=== PATIENT | female | born 1965 ===

== ENCOUNTER 2018-01-21 19:48 | Observation (INO) | payer SELFPAY ==
--- NOTE | 2018-01-21 20:14 | ED PDOC ---
HPI: General Adult Time Seen by Provider: 01/21/18 20:12 Chief Complaint (Nursing): Shortness Of Breath Chief Complaint (Provider): SOB History Per: Patient Additional Complaint(s): 52-year-old female presents to emergency department with chest pain, palpitations and shortness of breath that started about one hour prior to arrival. Patient states that symptoms have resolved as of now but earlier symptoms were intense. Patient has had 3 episodes similar to this in the past few weeks. She has history of cardiac ablation procedure for SVT last year and takes lisinopril daily for hypertension. Patient denies any fever or chills, no dyspnea on exertion. PMD: [facility] Past Medical History Reviewed: Historical Data, Nursing Documentation, Vital Signs Vital Signs: Last Vital Signs Temp 98.2 F 01/21/18 20:05 Pulse 70 01/21/18 21:02 Resp 18 01/21/18 21:02 BP 121/82 01/21/18 21:02 Pulse Ox 96 01/21/18 21:37 - Medical History PMH: Cardia Arrhythmia (SVT) - Surgical History Other surgeries: cardiac ablation - Family History Family History: States: No Known Family Hx - Living Arrangements Living Arrangements: With Family - Social History Current smoker - smoking cessation education provided: No Alcohol: Occasional Drugs: Denies - Home Medications Home Medications: Ambulatory Orders Medication Instructions Recorded Aspirin [Aspirin Chewable] 81 mg PO DAILY 07/06/17 - Allergies Allergies/Adverse Reactions: Allergies Allergy/AdvReac Type Severity Reaction Status Date / Time No Known Allergies Allergy Verified 01/21/18 20:05 Review of Systems ROS Statement: Except As Marked, All Systems Reviewed And Found Negative Constitutional: Negative for: Fever Cardiovascular: Positive for: Chest Pain. Negative for: Edema, Light Headedness Respiratory: Positive for: Shortness of Breath. Negative for: Cough, Hemoptysis , SOB with Exertion, Pleuritic Pain, Sputum, Wheezing Gastrointestinal: Negative for: Nausea, Vomiting Neurological: Negative for: Headache, Dizziness Physical Exam - Reviewed Nursing Documentation Reviewed: Yes Vital Signs Reviewed: Yes - Physical Exam Appears: Positive for: Well, Non-toxic, No Acute Distress Skin: Negative for: Rash Eye Exam: Positive for: Normal appearance Cardiovascular/Chest: Positive for: Regular Rate, Rhythm Respiratory: Positive for: Normal Breath Sounds Gastrointestinal/Abdominal: Positive for: Soft. Negative for: Tenderness Extremity: Positive for: Normal ROM Neurologic/Psych: Positive for: Alert, Oriented - Laboratory Results Result Diagrams: 01/21/18 21:05 01/21/18 21:05 - ECG Interpretation Of ECG: NSR 99 bpm, no acute finding, reviewed by PA and ED attending O2 Sat by Pulse Oximetry: 96 Pulse Ox Interpretation: Normal - Other Rad CXR X-Ray: Interpreted by Me, Viewed By Me X-Ray Interpretation: no acute finding Medical Decision Making Medical Decision Makin52 year old with chest pain, palpitations and SOB, now resolved. Plan: EKG CXR CBC CMP Trop DDimer IVF PO ASA and tylenol PMD is [facility], case was d/w family practice resident, Dr. Villa who will admit patient to Obs-tele. Patient is aware of and agrees with admission. Disposition - Clinical Impression Clinical Impression: Chest pain, Palpitations, Shortness of breath - Patient ED Disposition Is Patient to be Admitted: Yes - Disposition Disposition Time: 22:15 Condition: STABLE Forms: [employer] ([place]) - Pt Status Changed To: Hospital Disposition Of: Observation - POA Present On Arrival: None Results - Lab Results Lab Results: 01/21/18 01/21/18 01/21/18 21:05 21:05 21:05 WBC 8.0 RBC 4.33 Hgb 13.3 Hct 39.3 MCV 90.8 MCH 30.8 MCHC 33.9 RDW 13.6 Plt Count 247 MPV 8.1 Neut % (Auto) 67.5 Lymph % (Auto) 25.9 [place] % (Auto) 4.5 Eos % (Auto) 1.4 Baso % (Auto) 0.7 Neut # (Auto) 5.4 Lymph # (Auto) 2.1 [place] # (Auto) 0.4 Eos # (Auto) 0.1 Baso # (Auto) 0.1 D-Dimer, Quantitative 85 Sodium 145 Potassium 3.9 Chloride 106 Carbon Dioxide 26 Anion Gap 17 BUN 18 H Creatinine 0.7 Est GFR ( Amer) > 60 Est GFR (Non-Af Amer) > 60 Random Glucose 108 H Calcium 9.3 Phosphorus 3.3 Magnesium 2.1 Total Bilirubin 0.4 AST 31 ALT 24 Alkaline Phosphatase 91 Troponin I < 0.0120 Total Protein 7.9 Albumin 4.1 Globulin 3.8 Albumin/Globulin Ratio 1.1 TSH 3rd Generation 0.72
[2018-01-21] MEDS ORDERED: Sodium Chloride 0.9% 1,000 ML IV STA (20:31)
[2018-01-21 21:12] LABS: BASO # 0.1 K/uL (0.0-0.2); BASO % 0.7 % (0.0-2.0); EOS # 0.1 K/uL (0.0-0.7); EOS % 1.4 % (0.0-4.0); HEMOGLOBIN 13.3 g/dL (12.0-16.0); LYMPH # 2.1 K/uL (1.0-4.3); LYMPH % 25.9 % (20.0-40.0); MEAN CELL VOLUME 90.8 fl (81.0-99.0); MEAN CORPUSCULAR HEMOGLOBIN 30.8 pg (27.0-31.0); MEAN CORPUSCULAR HGB CONC 33.9 g/dL (33.0-37.0); MEAN PLATELET VOLUME 8.1 fl (7.2-11.7); MONO # 0.4 K/uL (0.0-0.8); MONO % 4.5 % (0.0-10.0); NEUT # 5.4 K/uL (1.8-7.0); NEUT % 67.5 % (50.0-75.0); RBC 4.33 Mil/uL (3.80-5.20); RED CELL DISTRIBUTION WIDTH 13.6 % (11.5-14.5)
[2018-01-21 21:38] LABS: ALB/GLOB RATIO 1.1 (1.0-2.1); ALBUMIN 4.1 g/dL (3.5-5.0); ALT/SGPT 24 U/L (9-52); AST/SGOT 31 U/L (14-36); BLOOD UREA NITROGEN 18 mg/dl (7-17); CALCIUM 9.3 mg/dL (8.4-10.2); GFR AFRICAN-AMERICAN > 60; GFR NON-AFRICAN AMERICAN > 60; MAGNESIUM 2.1 MG/DL (1.6-2.3)
--- NOTE | 2018-01-21 22:48 | CP.PCM.HP ---
History of Present Illness - History of Present Illness History of Present Illness: "I have chest discomfort and difficulty breathing today" [employer]#: [id number] 52 y/o female with PMHx remarkable for HTN, PSVT (s/p ablation 11/2016) presents for evaluation of difficulty breathing and midsternal chest pain. Pt reports these symptoms started approx 2 weeks ago and she has been going to various doctors and ERs for evaluation. She has been discharged each time w/o any further workup or diagnosis. Today, at approx 13:00, she had another episode of SOB, midsternal discomfort, associated with nausea and dizziness. The episode lasted between 30min-1hr and resolved spontaneously. During the first episode, she denied any fever, cough, Palpitations, left/arm jaw pain, diaphoresis, back pain. She did not take any medications. Later in the evening, she another episode, exactly the same as the first, which prompted to to come in for evaluation. As per pt, she was worked up at [place] recently and was discharged with a diagnosis of Acute Bronchitis. She complained to PMD on 01/04 of these episodes and was told it was residual symptoms left over from her recent illness. She denies any fever/chills, visual changes, headaches, palpitations, pre-syncopal symptoms, COPE/exertional CP/palpitations, V/D/C, numbness/tingling. PMD: [facility] (most recent visit 01/04/2018) PMHx: PSVT, HTN Meds: Lisinopril 5mg QD, Aspirin 81mg QD (as of 01/04) PSurgHx: hysterectomy 8 years ago, [facility] Ablation 11/2016 at [facility] ALL: NKDA FamilyHx: HTN, father colon CA SocialHx: Denies ETOH/Tobacco/drug abuse LMP: >8 years ago OBHx: , NSVDx2 Next of Kin: Daughter, Veronica Varma [phone] Code Status: Full Code ED Course: Vitals on Presentation: T: 98.2 F, BP 155/110 then 121/82, HR: 96 then 70, RR: 16, POX: 96% RA Labs CBC: wnl CMP: wnl Troponin: <0.0120 @ 21:05 D-Dimer: wnl TSH: wnl Imaging: EKG: NSR, 98 bpm, normal axis, QTc: 479 (prolonged), MI 144, no ST elevations/ depressions/Q-waves. Normal EKG as per my interpretation. CXR: normal CXR as per my interpretation Meds: Aspirin 325mg PO once Tylenol 950mg PO once 1 L NS Present on Admission - Present on Admission Any Indicators Present on Admission: No History of DVT/PE: No History of Uncontrolled Diabetes: No Urinary Catheter: No Decubitus Ulcer Present: No Review of Systems - Constitutional Constitutional: absent: As Per HPI, Anorexia, Chills, Daytime Sleepiness, Excessive Sweating, Fatigue, Fever, Frequent Falls, Headache, Increased Appetite , Lethargy, Malaise, Night Sweats, Snoring, Sleep Apnea, Weight Gain, Weight Loss, Weakness, Other - EENT Eyes: absent: As Per HPI, Blind Spots, Blurred Vision, Change in Vision, Decreased Night Vision, Diplopia, Discharge, Dry Eye, Exophthalmos, Floaters, Irritation, Itchy Eyes, Loss of Peripheral Vision, Pain, Photophobia, Requires Corrective Lenses, Sees Flashes, Spots in Vision, Tunnel Vision, Other Visual Disturbances, Loss of Vision, Other Ears: absent: As Per HPI, Decreased Hearing, Ear Discharge, Ear Pain, Tinnitus, Abnormal Hearing, Disequilibrium, Dizziness, Other Nose/Mouth/Throat: absent: As Per HPI, Epistaxis, Nasal Congestion, Nasal Discharge, Nasal Obstruction, Nasal Trauma, Nose Pain, Post Nasal Drip, Sinus Pain, Sinus Pressure, Bleeding Gums, Change in Voice, Dental Pain, Dry Mouth, Dysphagia, Halitosis, Hoarsness, Lip Swelling, Mouth Lesions, Mouth Pain, Odynophagia, Sore Throat, Throat Swelling, Tongue Swelling, Facial Pain, Neck Pain, Neck Mass, Other - Breasts Breasts: absent: As Per HPI, Change in Shape, Mass, Pain, Nipple Discharge, Nipple Inversion, Skin Changes, Swelling, Other - Cardiovascular Cardiovascular: Chest Pain. absent: As Per HPI, Acrocyanosis, Chest Pain at Rest, Chest Pain with Activity, Claudication, Diaphoresis, Dyspnea, Dyspnea on Exertion, Edema, Irregular Heart Rhythm, Pain Radiating to Arm/Neck/Jaw, Leg Edema, Leg Ulcers, Lightheadedness, Orthopnea, Palpitations, Paroxysmal Nocturnal Dyspnea, Pedal Edema, Radiating Pain, Rapid Heart Rate, Slow Heart Rate, Syncope, Other - Respiratory Respiratory: Dyspnea. absent: As Per HPI, Cough, Hemoptysis, Dyspnea on Exertion, Wheezing, Snoring, Stridor, Pain on Inspiration, Chest Congestion, Excessive Mucous Production, Change in Mucous Color, Pain with Coughing, Other - Gastrointestinal Gastrointestinal: Nausea. absent: As Per HPI, Abdominal Pain, Belching, Bloating, Change in Bowel Habits, Change in Stool Character, Coffee Ground Emesis, Constipation, Cramping, Diarrhea, Dyspepsia, Dysphagia, Early Satiety, Excessive Flatus, Fecal Incontinence, Heartburn, Hematemesis, Hematochezia, Loose Stools, Melena, Odynophagia, Temesmus, Vomiting, Other - Genitourinary Genitourinary: absent: As Per HPI, Change in Urinary Stream, Difficulty Urinating, Dysuria, Flank Pain, Hematuria, Pyuria, Nocturia, Urinary Incontinence, Urinary Frequency, Urinary Hesitance, Urinary Urgency, Voiding Freq/Small Amts, Freq UTI, Hx Renal/Bladder Calculi, Hx /Renal Surgery, Bladder Distension, Other - Musculoskeletal Musculoskeletal: As Per HPI. absent: Abnormal Gait, Arthralgias, Atrophy, Back Pain, Deformity, Joint Swelling, Limited Range of Motion, Loss of Height, Muscle Cramps, Muscle Weakness, Myalgias, Neck Pain, Numbness, Radiating Pain into Limb, Stiffness, Tingling, Other Additional comments: midsternal chest pain - Integumentary Integumentary: absent: As Per HPI, Acne, Alopecia, Bleeding Lesions, Change in Hair, Change in Nails, Change in Pigmentation, Changing Lesions, Dry Skin, Erythema, Furuncle, Hirsutism, Lesions, New Lesions, Non-Healing Lesions, Photosensitivity, Pruritus, Rash, Skin Pain, Skin Ulcer, Sores, Striae, Swelling , Unusual Bruising, Wounds, Jaundice, Other Past Patient History - Past Medical History & Family History Past Medical History?: Yes - Past Social History Smoking Status: Never Smoked Alcohol: Occasional Drugs: Denies Home Situation {Lives}: With Family - CARDIAC Hx Cardia Arrhythmia: Yes (SVT) - PULMONARY Hx Respiratory Disorders: No - NEUROLOGICAL Hx Neurological Disorder: No - HEENT Hx HEENT Problems: No - RENAL Hx Chronic Kidney Disease: No - ENDOCRINE/METABOLIC Hx Endocrine Disorders: No - HEMATOLOGICAL/ONCOLOGICAL Hx Blood Disorders: No - INTEGUMENTARY Hx Dermatological Problems: No - MUSCULOSKELETAL/RHEUMATOLOGICAL Hx Musculoskeletal Disorders: No - GASTROINTESTINAL Hx Gastrointestinal Disorders: No - GENITOURINARY/GYNECOLOGICAL Hx Genitourinary Disorders: No - PSYCHIATRIC Hx Psychophysiologic Disorder: No Hx Emotional Abuse: No Hx Physical Abuse: No Hx Substance Use: No - SURGICAL HISTORY Hx Surgeries: Yes Hx Hysterectomy: Yes Other/Comment: CARDIAC ABLATION - ANESTHESIA Hx Anesthesia: Yes Hx Anesthesia Reactions: No Hx Malignant Hyperthermia: No Meds Allergies/Adverse Reactions: Allergies Allergy/AdvReac Type Severity Reaction Status Date / Time No Known Allergies Allergy Verified 01/21/18 20:05 Physical Exam - Constitutional Appears: Non-toxic, No Acute Distress - Head Exam Head Exam: ATRAUMATIC, NORMAL INSPECTION, NORMOCEPHALIC - Eye Exam Eye Exam: EOMI, Normal appearance, PERRL Pupil Exam: NORMAL ACCOMODATION - ENT Exam ENT Exam: Mucous Membranes Moist, Normal Exam - Neck Exam Neck exam: Positive for: Full Rom, Normal Inspection. Negative for: Lymphadenopathy, Tenderness, Thyromegaly - Respiratory Exam Respiratory Exam: Chest Wall Tenderness (reproducible chest tenderness to midsternal area, apporx 4th left intercostal space. no rash or trauma. ), Clear to Auscultation Bilateral, NORMAL BREATHING PATTERN. absent: Rales, Rhonchi, Wheezes, Respiratory Distress - Cardiovascular Exam Cardiovascular Exam: REGULAR RHYTHM, RRR, +S1, +S2. absent: Bradycardia, Tachycardia, Diastolic murmur, Gallop, Irregular Rhythm, JVD, Rubs, Systolic Murmur - GI/Abdominal Exam GI & Abdominal Exam: Normal Bowel Sounds, Soft. absent: Tenderness - Extremities Exam Extremities exam: Positive for: full ROM, normal capillary refill, normal inspection, pedal pulses present. Negative for: calf tenderness, pedal edema, tenderness - Back Exam Back exam: NORMAL INSPECTION. absent: CVA tenderness (L), CVA tenderness (R) - Neurological Exam Neurological exam: Alert, CN II-XII Intact, Normal Gait, Oriented x3, Reflexes Normal - Psychiatric Exam Psychiatric exam: Normal Affect, Normal Mood - Skin Skin Exam: Dry, Intact, Normal Color, Warm Results - Vital Signs Recent Vital Signs: Last Vital Signs Temp 98.2 F 01/21/18 20:05 Pulse 70 01/21/18 21:02 Resp 18 03/02/18 21:02 BP 121/82 01/21/18 21:02 Pulse Ox 96 01/21/18 22:16 - Labs Result Diagrams: 01/21/18 21:05 01/21/18 21:05 Labs: Laboratory Results - last 24 hr 01/21/18 01/21/18 01/21/18 21:05 21:05 21:05 WBC 8.0 RBC 4.33 Hgb 13.3 Hct 39.3 MCV 90.8 MCH 30.8 MCHC 33.9 RDW 13.6 Plt Count 247 MPV 8.1 Neut % (Auto) 67.5 Lymph % (Auto) 25.9 [place] % (Auto) 4.5 Eos % (Auto) 1.4 Baso % (Auto) 0.7 Neut # (Auto) 5.4 Lymph # (Auto) 2.1 [place] # (Auto) 0.4 Eos # (Auto) 0.1 Baso # (Auto) 0.1 D-Dimer, Quantitative 85 Sodium 145 Potassium 3.9 Chloride 106 Carbon Dioxide 26 Anion Gap 17 BUN 18 H Creatinine 0.7 Est GFR ( Amer) > 60 Est GFR (Non-Af Amer) > 60 Random Glucose 108 H Calcium 9.3 Phosphorus 3.3 Magnesium 2.1 Total Bilirubin 0.4 AST 31 ALT 24 Alkaline Phosphatase 91 Troponin I < 0.0120 Total Protein 7.9 Albumin 4.1 Globulin 3.8 Albumin/Globulin Ratio 1.1 TSH 3rd Generation 0.72 Assessment & Plan - Assessment and Plan (Free Text) Assessment: 52 y/o female, with a PMHx remarkable for HTN, PSVT (s/p ablation 11/2016) admitted for atypical chest pain to rule out ACS. Plan: 1) Atypical Chest Pain in Hypertensive Pt: -rule out ACS -admitted to tele/obs -tele monitoring -1st EKG unremarkable for cardiac etiology -Aspirin 325mg PO once given -1 L NS given -950mg Tylenol PO given -Labs wnl -Troponin <0.0120, will trend Q6H for 3 total values -repeat EKG in AM -pain control PRN as ordered -heart healthy diet 2) Hypertension: -stable/chronic -c/w Lisinopril 5mg QD 3) History of PSVT s/p ablation: -stable -EKG reviewed, no signs of SVT -placed on quality assurance monitor 4) Prophylaxis: -SCDs/ambulation -Lovenox 40mg SC QD 5) Code Status: -Full Code
[2018-01-22] MEDS ORDERED: Pneumococcal 23-Valent Vaccine IM ONE (06:00)
[2018-01-22 08:13] VITALS: BP 114/76; PULSE 56; RESP 20; TEMP 97.8; O2SAT 99
[2018-01-22] MEDS ORDERED: Enoxaparin 40 mg Syringe SC SCH (09:00)
[2018-01-22] MEDS ORDERED: Influenza Vaccine 18yr & older 0.5 ML/45 MCG SYR IM ONE (09:00)
--- NOTE | 2018-01-22 11:13 | CP.PCM.DIS ---
Provider - Provider Date of Admission: 01/21/18 22:02 Attending physician: Lynn Martinez MD Time Spent in preparation of Discharge (in minutes): 45 Diagnosis - Discharge Diagnosis (1) Chest pain Status: Acute Hospital Course - Lab Results Lab Results: Most Recent Lab Values WBC 8.0 K/uL (4.8-10.8) 01/21/18 21:05 RBC 4.33 Mil/uL (3.80-5.20) 01/21/18 21:05 Hgb 13.3 g/dL (12.0-16.0) 01/21/18 21:05 Hct 39.3 % (34.0-47.0) 01/21/18 21:05 MCV 90.8 fl (81.0-99.0) 01/21/18 21:05 MCH 30.8 pg (27.0-31.0) 01/21/18 21:05 MCHC 33.9 g/dL (33.0-37.0) 01/21/18 21:05 RDW 13.6 % (11.5-14.5) 01/21/18 21:05 Plt Count 247 K/uL (130-400) 01/21/18 21:05 MPV 8.1 fl (7.2-11.7) 01/21/18 21:05 Neut % (Auto) 67.5 % (50.0-75.0) 01/21/18 21:05 Lymph % (Auto) 25.9 % (20.0-40.0) 01/21/18 21:05 [place] % (Auto) 4.5 % (0.0-10.0) 01/21/18 21:05 Eos % (Auto) 1.4 % (0.0-4.0) 01/21/18 21:05 Baso % (Auto) 0.7 % (0.0-2.0) 01/21/18 21:05 Neut # (Auto) 5.4 K/uL (1.8-7.0) 01/21/18 21:05 Lymph # (Auto) 2.1 K/uL (1.0-4.3) 01/21/18 21:05 [place] # (Auto) 0.4 K/uL (0.0-0.8) 03/02/18 21:05 Eos # (Auto) 0.1 K/uL (0.0-0.7) 01/21/18 21:05 Baso # (Auto) 0.1 K/uL (0.0-0.2) 01/21/18 21:05 D-Dimer, Quantitative 85 ng/mlDDU (0-230) 01/21/18 21:05 Sodium 145 mmol/l (132-148) 01/21/18 21:05 Potassium 3.9 MMOL/L (3.6-5.0) 01/21/18 21:05 Chloride 106 mmol/L (98-107) 01/21/18 21:05 Carbon Dioxide 26 mmol/L (22-30) 01/21/18 21:05 Anion Gap 17 (10-20) 01/21/18 21:05 BUN 18 mg/dl (7-17) H 01/21/18 21:05 Creatinine 0.7 mg/dl (0.7-1.2) 01/21/18 21:05 Est GFR ( Amer) > 60 01/21/18 21:05 Est GFR (Non-Af Amer) > 60 01/21/18 21:05 Random Glucose 108 mg/dL (65-105) H 01/21/18 21:05 Calcium 9.3 mg/dL (8.4-10.2) 01/21/18 21:05 Phosphorus 3.3 mg/dl (2.5-4.5) 01/21/18 21:05 Magnesium 2.1 MG/DL (1.6-2.3) 01/21/18 21:05 Total Bilirubin 0.4 mg/dl (0.2-1.3) 01/21/18 21:05 AST 31 U/L (14-36) 01/21/18 21:05 ALT 24 U/L (9-52) 01/21/18 21:05 Alkaline Phosphatase 91 U/L (38-126) 01/21/18 21:05 Troponin I < 0.0120 ng/mL (0.00-0.120) 01/22/18 09:06 Total Protein 7.9 G/DL (6.3-8.2) 01/21/18 21:05 Albumin 4.1 g/dL (3.5-5.0) 01/21/18 21:05 Globulin 3.8 gm/dL (2.2-3.9) 01/21/18 21:05 Albumin/Globulin Ratio 1.1 (1.0-2.1) 01/21/18 21:05 TSH 3rd Generation 0.72 mIU/ML (0.46-4.68) 01/21/18 21:05 - Hospital Course Hospital Course: Hospital Course: 52 y/o female with PMHx remarkable for HTN, PSVT (s/p ablation 11/2016) presents for evaluation of difficulty breathing and midsternal chest pain. ACS ruled out, serial cardiac enzymes, and EKG normal. Pt monitored in Telemetry overnight with no acute events. 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 Discharge medications: No new rx. Continue with home meds Condition upon discharge: Fair Activity: Ambulating without assistance Discharge Instructions: F/U with PMD, appt scheduled for 02/01. F/U with private Admitting Supervisor in [place]. Discharge Exam - Head Exam Head Exam: ATRAUMATIC, NORMAL INSPECTION, NORMOCEPHALIC - ENT Exam ENT Exam: Mucous Membranes Moist - Respiratory Exam Respiratory Exam: Chest Wall Tenderness, NORMAL BREATHING PATTERN. absent: Rales, Wheezes, Respiratory Distress - Cardiovascular Exam Cardiovascular Exam: REGULAR RHYTHM, +S1, +S2. absent: Systolic Murmur - GI/Abdominal Exam GI & Abdominal Exam: Normal Bowel Sounds, Soft. absent: Distended, Tenderness - Neurological Exam Neurological exam: Alert, Oriented x3 - Psychiatric Exam Psychiatric exam: Normal Affect Discharge Plan - Follow Up Plan Condition: STABLE Disposition: HOME/ ROUTINE
--- NOTE | 2018-01-22 11:23 | RAD ---
HISTORY: SOB COMPARISON: No prior. FINDINGS: LUNGS: Minor linear atelectasis and or scarring changes left medial lung base. Several small nodular densities left perihilar region likely represent vessel on end artifact however followup nonemergent CT scan of the chest could be performed to exclude parenchymal nodules. PLEURA: No significant pleural effusion identified, no pneumothorax apparent. CARDIOVASCULAR: Normal. OSSEOUS STRUCTURES: No significant abnormalities. VISUALIZED UPPER ABDOMEN: Normal. OTHER FINDINGS: None. IMPRESSION: Minor linear atelectasis and or scarring changes left medial lung base. Several small nodular densities left perihilar region likely represent vessel on end artifact however followup nonemergent CT scan of the chest could be performed to exclude parenchymal nodules. Note this report was placed in PA review folder for followup
--- NOTE | 2018-01-24 12:18 | CARD ---
APPROVED REPORT EKG Measurement Heart [id number] <Conclusion> Normal sinus rhythm Normal ECG
--- NOTE | 2018-01-24 12:22 | CARD ---
APPROVED REPORT EKG Measurement Heart [id number] <Conclusion> Normal sinus rhythm Normal ECG
== END 2018-01-22 14:31 | disposition home or self-care (01) ==
LOC: H.ER 19:48 → H.ERHOLD 22:02 → H.TEL 23:55
PROVIDERS: ADMIT Family Medicine; ATTEND Family Medicine
DX: R07.89 Other chest pain (principal); I10 Essential (primary) hypertension; J20.9 Acute bronchitis, unspecified; R00.2 Palpitations
CPT/HCPCS: 36415; 71045; 80053; 83735; 84100; 84443; 84484; 85025; 85378; 90471; 93005; 96360; 99285; G0378; J1650; J7040; Q2035